=== PATIENT | female | born 1995 | race Caucasian/White ===

== ENCOUNTER 2018-01-30 20:42 | Emergency (ER) | payer BC ==
[2018-01-30 21:33] LABS: Basophils # (A) 0.1 k/uL (0-0.2); Basophils % (A) 0 %; Eosinophils # (A) 0.1 k/uL (0-0.7); Eosinophils % (A) 0 %; HCT 41.7 % (34.0-46.0); HGB 14.2 gm/dL (11.4-16.0); Lymphocytes # (A) 2.3 k/uL (1.0-4.8); Lymphocytes % (A) 12 %; MCH 30.9 pg (25.0-35.0); MCHC 34.1 g/dL (31.0-37.0); MCV 90.6 fL (80.0-100.0); Mean Platelet Volume 6.8; Monocytes # (A) 0.8 k/uL (0-1.0); Monocytes % (A) 4 %; Neutrophils # (A) 15.8 k/uL (1.3-7.7); Neutrophils % (A) 83 %; Platelet Count 352 k/uL (150-450); RBC 4.61 m/uL (3.80-5.40); RDW 12.2 % (11.5-15.5); WBC 19.1 k/uL (3.8-10.6)
[2018-01-30 21:43] LABS: ALT 30 U/L (9-52); AST 20 U/L (14-36); Albumin 4.2 g/dL (3.5-5.0); Alcohol <10 mg/dL; Alkaline Phosphatase 44 U/L (38-126); Amylase 40 U/L (30-110); Anion Gap 8 mmol/L; Blood Urea Nitrogen 9 mg/dL (7-17); Calcium 9.5 mg/dL (8.4-10.2); Carbon Dioxide 25 mmol/L (22-30); Chloride 107 mmol/L (98-107); Glucose 101 mg/dL (74-99); Lipase 46 U/L (23-300); Potassium 4.1 mmol/L (3.5-5.1); Sodium 140 mmol/L (137-145); Total Bilirubin 0.4 mg/dL (0.2-1.3); Total Protein 6.5 g/dL (6.3-8.2)
[2018-01-30 21:45] LABS: Partial Thromboplastin Time 23.1 sec (22.0-30.0); Prothrombin Time 10.1 sec (9.0-12.0)
[2018-01-30 21:51] LABS: Creatine Kinase 80 U/L (30-135)
--- NOTE | 2018-01-30 21:52 | XR ---
EXAMINATION TYPE: XR pelvis AP view DATE OF EXAM: 01/30/2018 COMPARISON: NONE HISTORY: Pain TECHNIQUE: Single view FINDINGS: Pelvic ring is intact. IUD is noted. Proximal femurs and hip joints appear normal. Sacroili ac joints are normal. IMPRESSION: Normal pelvis
--- NOTE | 2018-01-30 21:52 | XR ---
EXAMINATION TYPE: XR chest 1V portable DATE OF EXAM: 01/30/2018 COMPARISON: NONE HISTORY: Pain TECHNIQUE: Single frontal view of the chest is obtained. FINDINGS: Heart and mediastinum are normal. Lungs are clear. Diaphragm is normal. Bony thorax appear s normal. IMPRESSION: Normal chest
--- NOTE | 2018-01-30 21:53 | XR ---
EXAMINATION TYPE: XR Hip Complete RT DATE OF EXAM: 01/30/2018 COMPARISON: NONE HISTORY: Pain TECHNIQUE: 2 views FINDINGS: Proximal femur and hip joint appear normal. There is no sign of hip dysplasia. There is no evidence of a fracture. IMPRESSION: Normal right hip
--- NOTE | 2018-01-30 21:55 | XR ---
EXAMINATION TYPE: XR foot limited LT DATE OF EXAM: 01/30/2018 COMPARISON: NONE HISTORY: Pain TECHNIQUE: 2 views FINDINGS: Metatarsals are intact. There is possible nondisplaced transverse fracture through the base of the distal phalanx of the big toe. This should be correlated with the physical exam. This is only seen on one view. Joint spaces are normal IMPRESSION: Possible fracture of the big toe. Clinical correlation is needed.
--- NOTE | 2018-01-30 21:56 | XR ---
EXAMINATION TYPE: XR knee limited LT DATE OF EXAM: 01/30/2018 COMPARISON: NONE HISTORY: Knee pain TECHNIQUE: 2 views FINDINGS: I see no fracture nor dislocation. Joint spaces are normal. There is no sign of knee joint effusion. IMPRESSION: Negative left knee exam
[2018-01-30 22:05] LABS: Creatine Kinase MB 0.6 ng/mL (0.0-2.4); Troponin I <0.012 ng/mL (0.000-0.034)
[2018-01-30] MEDS ORDERED: DIPH,PERTUS(ACELL)TETVAC-LF 0.5 ML VIAL IM ONE (22:13)
[2018-01-30] MEDS ORDERED: HYDROcodone/APAP 5-325MG 1 EACH TAB PO STA (22:17)
--- NOTE | 2018-01-30 22:29 | ED ---
General Adult HPI - General Chief complaint: Fall Stated complaint: Fell/off horse/Back Pain Time Seen by Provider: 01/30/18 20:49 Source: patient, family Mode of arrival: wheelchair Limitations: no limitations - History of Present Illness Initial comments: Patient is a previously healthy 22-year-old female who is brought to the ED by her parents for evaluation of injury after being bucked off of her horse. She reports that she was riding when she was bucked off onto her right landing on her right hip and lower extremities. She also scratched her right arm. She did not hit her head she did not lose consciousness. She is not expressing any headache or neck pain. She came to the ER for evaluation of right hip pain. Patient has been ambulatory since the incident. But she states she has pain in her left toes and right hip when walking. Patient has no history of any orthopedic Drees or surgeries in the past. She believes her vaccinations are up-to-date but her last tetanus vaccination was probably in her early teens. - Related Data Home Medications Medication Instructions Recorded Confirmed Escitalopram [Lexapro] 10 mg PO DAILY 10/30/15 01/30/18 Previous Rx's Medication Instructions Recorded HYDROcodone/APAP 5-325MG [[place] 5] 1 each PO Q6HR PRN #5 tab 01/30/18 Ibuprofen [Motrin] 600 mg PO Q6HR #30 tab 01/30/18 Methocarbamol [Robaxin] 500 mg PO QID #30 tab 01/30/18 Allergies Allergy/AdvReac Type Severity Reaction Status Date / Time No Known Allergies Allergy Verified 01/30/18 20:59 Review of Systems ROS Statement: Those systems with pertinent positive or pertinent negative responses have been documented in the HPI. ROS Other: All systems not noted in ROS Statement are negative. Past Medical History Past Medical History: No Reported History History of Any Multi-Drug Resistant Organisms: None Reported Past Surgical History: Tonsillectomy Past Psychological History: Anxiety, Depression Smoking Status: Never smoker Past Alcohol Use History: None Reported Past Drug Use History: None Reported General Exam Limitations: no limitations General appearance: alert, in no apparent distress Head exam: Present: atraumatic, normocephalic Eye exam: Present: normal appearance, PERRL ENT exam: Present: normal exam, mucous membranes moist Neck exam: Present: normal inspection, full ROM, other (No midline cervical spine tenderness) Respiratory exam: Present: normal lung sounds bilaterally. Absent: respiratory distress, wheezes Cardiovascular Exam: Present: regular rate, normal rhythm GI/Abdominal exam: Present: soft, normal bowel sounds. Absent: distended, tenderness Rectal exam: Present: deferred Extremities exam: Present: full ROM, tenderness, normal capillary refill, other (Abrasion the lateral right thigh, abrasion to left knee, decreased range of motion of left great toe secondary to pain). Absent: pedal edema, joint swelling Back exam: Present: full ROM. Absent: tenderness, muscle spasm, paraspinal tenderness, vertebral tenderness Psychiatric exam: Present: normal affect, normal mood Skin exam: Present: warm, dry, abrasion Course Vital Signs 01/30/18 01/30/18 01/30/18 20:51 21:47 22:02 Temperature 98.3 F Pulse Rate 72 72 Respiratory 20 Rate Blood Pressure 114/56 113/56 O2 Sat by Pulse 100 66 L 99 Oximetry 01/30/18 01/30/18 01/30/18 22:17 22:32 22:55 Temperature 97.9 F Pulse Rate 68 71 Respiratory 16 Rate Blood Pressure 115/56 110/58 121/56 O2 Sat by Pulse 99 99 Oximetry 01/31/18 01:49 Temperature Pulse Rate 75 Respiratory Rate Blood Pressure 121/56 O2 Sat by Pulse Oximetry - Reevaluation(s) Reevaluation #1: and parents were updated on x-ray findings, patient resting comfortably. States she feels like she needs to move because her muscles are starting to spasm. 01/30/18 22:21 EKG Findings - EKG Comments: EKG Findings:: EKG, normal sinus rhythm, rate 73, normal axis, normal intervals , no acute ST elevations or depressions. Medical Decision Making - Medical Decision Making Level 2 trauma activation Patient was seen and evaluated per ATLS protocol Patient was bucked off a horse, has abrasions, complaining of right hip and left toe pain Imaging was ordered Patient states that there is no possibility that she is and she consents to x-rays without test resulted X-rays reveal left great toe fracture. Left knee, Right hip and bony pelvis are intact Results were discussed with the patient and her parents at bedside. Patient expresses relief. Patient does not believe her tetanus has been updated in the past 10 years, tetanus was ordered Patient able to stand with some discomfort I discussed with the patient that there are certain fractures that are difficult to identify on x-ray and that to be certain that there is no injury a computed tomography scan would rule out any factors missed by x-ray. At this point patient states she doesn't think necessary, she just feels like her muscles are tightening up and she needs to move. Patient would like to decline the computed tomography scan. I advised the patient that she will likely have muscle spasm worsening over the next 24-48 hours, I encouraged her to treat with rest, ice and gentle activity. I advised patient that if she has any worsening pain she should return to the ER for reevaluation. Patient and both her parents at bedside expressed understanding and agreement with this plan and the patient was discharged home in stable condition. I offer the patient [place], Robaxin and Motrin upon discharge. I prescribed each of these however when discussing narcotic pain medication with the patient she decided instead to decline the [place]. A prescription was destroyed and never given to the patient. Patient was discharged with Robaxin and Motrin. - Lab Data Result diagrams: 01/30/18 21:21 01/30/18 21:21 Lab Results 01/30/18 01/30/18 01/30/18 Range/Units 21:21 21:21 21:21 WBC 19.1 H (3.8-10.6) k/uL RBC 4.61 (3.80-5.40) m/uL Hgb 14.2 (11.4-16.0) gm/dL Hct 41.7 (34.0-46.0) % MCV 90.6 (80.0-100.0) fL MCH 30.9 (25.0-35.0) pg MCHC 34.1 (31.0-37.0) g/dL RDW 12.2 (11.5-15.5) % Plt Count 352 (150-450) k/uL Neutrophils % 83 % Lymphocytes % 12 % Monocytes % 4 % Eosinophils % 0 % Basophils % 0 % Neutrophils # 15.8 H (1.3-7.7) k/uL Lymphocytes # 2.3 (1.0-4.8) k/uL Monocytes # 0.8 (0-1.0) k/uL Eosinophils # 0.1 (0-0.7) k/uL Basophils # 0.1 (0-0.2) k/uL PT (9.0-12.0) sec INR (<1.2) APTT (22.0-30.0) sec Sodium 140 (137-145) mmol/L Potassium 4.1 (3.5-5.1) mmol/L Chloride 107 (98-107) mmol/L Carbon Dioxide 25 (22-30) mmol/L Anion Gap 8 mmol/L BUN 9 (7-17) mg/dL Creatinine 0.70 (0.52-1.04) mg/dL Est GFR (CKD-EPI)AfAm >90 (>60 ml/min/1.73 sqM) Est GFR (CKD-EPI)NonAf >90 (>60 ml/min/1.73 sqM) Glucose 101 H (74-99) mg/dL Plasma Lactic Acid Yogesh (0.7-2.0) mmol/L Calcium 9.5 (8.4-10.2) mg/dL Total Bilirubin 0.4 (0.2-1.3) mg/dL AST 20 (14-36) U/L ALT 30 (9-52) U/L Alkaline Phosphatase 44 (38-126) U/L Total Creatine Kinase 80 (30-135) U/L CK-MB (CK-2) 0.6 (0.0-2.4) ng/mL CK-MB (CK-2) Rel Index 0.8 Troponin I <0.012 (0.000-0.034) ng/mL Total Protein 6.5 (6.3-8.2) g/dL Albumin 4.2 (3.5-5.0) g/dL Amylase 40 (30-110) U/L Lipase 46 (23-300) U/L Serum Alcohol <10 mg/dL Blood Type Blood Type Recheck Antibody Screen Spec Expiration Date 01/30/18 01/30/18 01/30/18 Range/Units 21:21 21:21 21:21 WBC (3.8-10.6) k/uL RBC (3.80-5.40) m/uL Hgb (11.4-16.0) gm/dL Hct (34.0-46.0) % MCV (80.0-100.0) fL MCH (25.0-35.0) pg MCHC (31.0-37.0) g/dL RDW (11.5-15.5) % Plt Count (150-450) k/uL Neutrophils % % Lymphocytes % % Monocytes % % Eosinophils % % Basophils % % Neutrophils # (1.3-7.7) k/uL Lymphocytes # (1.0-4.8) k/uL Monocytes # (0-1.0) k/uL Eosinophils # (0-0.7) k/uL Basophils # (0-0.2) k/uL PT 10.1 (9.0-12.0) sec INR 1.0 (<1.2) APTT 23.1 (22.0-30.0) sec Sodium (137-145) mmol/L Potassium (3.5-5.1) mmol/L Chloride (98-107) mmol/L Carbon Dioxide (22-30) mmol/L Anion Gap mmol/L BUN (7-17) mg/dL Creatinine (0.52-1.04) mg/dL Est GFR (CKD-EPI)AfAm (>60 ml/min/1.73 sqM) Est GFR (CKD-EPI)NonAf (>60 ml/min/1.73 sqM) Glucose (74-99) mg/dL Plasma Lactic Acid Yogesh 1.5 (0.7-2.0) mmol/L Calcium (8.4-10.2) mg/dL Total Bilirubin (0.2-1.3) mg/dL AST (14-36) U/L ALT (9-52) U/L Alkaline Phosphatase (38-126) U/L Total Creatine Kinase (30-135) U/L CK-MB (CK-2) (0.0-2.4) ng/mL CK-MB (CK-2) Rel Index Troponin I (0.000-0.034) ng/mL Total Protein (6.3-8.2) g/dL Albumin (3.5-5.0) g/dL Amylase (30-110) U/L Lipase (23-300) U/L Serum Alcohol mg/dL Blood Type A Positive Blood Type Recheck CABO Indicated Antibody Screen NEGATIVE Spec Expiration Date 01/30/20182220 Disposition Clinical Impression: Animal-rider injured by fall from or being thrown from horse in noncollision accident, initial encounter, Fracture of left great toe Disposition: HOME SELF-CARE Instructions: Toe Fracture (ED) Prescriptions: HYDROcodone/APAP 5-325MG [[place] 5] 1 each PO Q6HR PRN #5 tab PRN Reason: Pain Ibuprofen [Motrin] 600 mg PO Q6HR #30 tab Methocarbamol [Robaxin] 500 mg PO QID #30 tab Is patient prescribed a controlled substance at d/c from ED?: No Referrals: Selvin Stern DO [Primary Care Provider] - 1-2 days Time of Disposition: 22:34
[2018-01-30 22:57] VITALS: BP 121/56; RESP 16; TEMP 97.9
[2018-01-31 01:50] VITALS: PULSE 75
== END 2018-01-30 22:47 | disposition home or self-care (01) ==
LOC: EC 20:42
DX: S92.402A Displaced unspecified fracture of left great toe, initial encounter for closed fracture (principal); S70.311A Abrasion, right thigh, initial encounter; S80.212A Abrasion, left knee, initial encounter; S40.811A Abrasion of right upper arm, initial encounter; M25.551 Pain in right hip; F32.9 Major depressive disorder, single episode, unspecified; F41.9 Anxiety disorder, unspecified; Z79.899 Other long term (current) drug therapy; Z23 Encounter for immunization; V80.010A Animal-rider injured by fall from or being thrown from horse in noncollision accident, initial encounter; Y93.52 Activity, horseback riding; Y92.89 Other specified places as the place of occurrence of the external cause
CPT/HCPCS: 36415; 71045; 72170; 73502; 80053; 80320; 82150; 82550; 82553; 83605; 83690; 84484; 85025; 85610; 85730; 86850; 86900; 86901; 90471; 90715; 93005; 99284